=== PATIENT | female | born 1990 | race Caucasian/White ===

== ENCOUNTER → 2022-06-01 | Outpatient (CLI) | payer OTHER ==
[2022-06-01 10:59] LABS: FREE T4 (FREE THYROXINE) 0.9 ng/dL (0.76-1.46); THYROID STIMULATING HORMONE 2.23 uIU/mL (0.36-3.74)
== END | disposition home or self-care (01) ==
LOC: MSR 08:30
PROVIDERS: ATTEND Chiropractor
DX: R07.9 Chest pain, unspecified (principal); E04.1 Nontoxic single thyroid nodule; R00.2 Palpitations
CPT/HCPCS: 71046; 84439; 84443; 84481; 93005; 93306; 36415-L1; 36415-TC